=== PATIENT | male | born 1965 | race Caucasian/White ===

== ENCOUNTER → 2021-03-23 | Outpatient (CLI) | payer OTHER ==
[~2021-03-23] MED LIST: ALLOPURINOL100 MG PO; CLARITIN10 M2 PO; DICLOFENAC SODI50 MG PO; GABAPENTIN600 MG PO; GLIPIZIDE ER2.5 MG PO; LIDOCAINE PAIN1 EACH TP; LIPITOR80 MG PO; NORVASC10 MG PO; OMEPRAZOLE20 MG PO; SINGULAIR10 MG PO; TRAZODONE HCL150 MG PO; ZOLOFT100 MG PO
[2021-03-23 16:59] LABS: HEMOGLOBIN 16.1 gm/dl (14.0-17.5); RED BLOOD COUNT 5.34 M/UL (4.20-5.50); WHITE BLOOD COUNT 9.8 K/UL (4.5-11.0)
[2021-03-23 17:22] LABS: BUN/CREATININE RATIO 22 (0-10)
== END ==
LOC: LAB 15:40
PROVIDERS: Internal Medicine Interventional Cardiology
DX: I20.9 Angina pectoris, unspecified (principal); R60.9 Edema, unspecified; E78.5 Hyperlipidemia, unspecified; R07.89 Other chest pain; I10 Essential (primary) hypertension
CPT/HCPCS: 36415; 80048; 85025; 85610; 85730

== ENCOUNTER 2021-03-31 22:16 | Observation (INO) | payer OTHER ==
[~2021-03-31] VITALS: Ht 188 cm; Wt 140.6 kg
[2021-04-01 01:21] LABS: HEMOGLOBIN 15.4 gm/dl (14.0-17.5); RED BLOOD COUNT 4.91 M/UL (4.20-5.50); WHITE BLOOD COUNT 11.6 K/UL (4.5-11.0)
[2021-04-01 01:47] LABS: BUN/CREATININE RATIO 17 (0-10)
[2021-04-01] MEDS ORDERED: ZOLOFT100 MG PO (06:23)
[2021-04-01] MEDS ORDERED: GLIPIZIDE ER2.5 MG PO (06:23)
[2021-04-01] MEDS ORDERED: OMEPRAZOLE20 MG PO (06:23)
[2021-04-01] MEDS ORDERED: ALLOPURINOL100 MG PO (06:24)
[2021-04-01] MEDS ORDERED: GABAPENTIN600 MG PO (06:24)
[2021-04-01] MEDS ORDERED: TRAZODONE HCL150 MG PO (06:24)
[2021-04-01] MEDS ORDERED: SINGULAIR10 MG PO (06:25)
[2021-04-01] MEDS ORDERED: NORVASC10 MG PO (06:25)
[2021-04-01] MEDS ORDERED: LIPITOR80 MG PO (06:25)
[2021-04-01] MEDS ORDERED: CLARITIN10 M2 PO (06:26)
[2021-04-01] MEDS ORDERED: LIDOCAINE PAIN1 EACH TP ×2 (06:27)
[2021-04-01] MEDS ORDERED: DICLOFENAC SODI50 MG PO (06:28)
[2021-04-03 04:28] LABS: HEMOGLOBIN 14.1 gm/dl (14.0-17.5); RED BLOOD COUNT 4.72 M/UL (4.20-5.50)
[2021-04-03 04:50] LABS: BUN/CREATININE RATIO 15 (0-10)
--- NOTE | 2021-04-03 17:00 | NUR ---
PATIENT IS INSISTANT ON TAKING A WALK SOON POST PROCEDURE VITALS ARE FINISHED. THE DANGERS AND SMOKING POLICY OF THE HOSPITAL HAVE BEEN RELAYED TO THE PATIENT. WILL CONTINUE TO MONITOR.
--- NOTE | 2021-04-03 17:21 | NUR ---
PATIENT HAS LEFT HIS ROOM WITH HIS FAMILY. TRJ BAND STILL IN PLACE AND NOT FULLY DEFLATED. SURGERY VITALS FINISHED. WILL CONTINUE TO MONITOR.
== END 2021-04-03 18:20 | disposition home or self-care (01) ==
LOC: ER1 22:16 → CDU 04-01 02:43 → MED SURG 4 04-01 02:43
PROVIDERS: Internal Medicine Cardiovascular Disease; Physician Assistant; ADMIT Internal Medicine
DX: I20.0 Unstable angina (principal); I10 Essential (primary) hypertension; E11.9 Type 2 diabetes mellitus without complications; G47.33 Obstructive sleep apnea (adult) (pediatric); Z88.5 Allergy status to narcotic agent; F17.210 Nicotine dependence, cigarettes, uncomplicated; Z82.49 Family history of ischemic heart disease and other diseases of the circulatory system; Z20.822 Contact with and (suspected) exposure to COVID-19; Z79.84 Long term (current) use of oral hypoglycemic drugs; F41.9 Anxiety disorder, unspecified; K21.9 Gastro-esophageal reflux disease without esophagitis; E78.5 Hyperlipidemia, unspecified; J18.9 Pneumonia, unspecified organism
CPT/HCPCS: 36415; 71045; 71046; 80048; 80053; 82550; 82553; 82962; 83874; 83880; 84484; 85025; 93005; 99152; 99285; C1769; C1894; G0378; J1644; J2250; J3010; Q9967; U0002

== ENCOUNTER 2021-08-23 16:29 | Emergency (ER) | payer OTHER ==
[2021-08-23] MEDS ORDERED: MEDROL DOSEPAK 24 MG PO (22:10)
[2021-08-23] MEDS ORDERED: CYCLOBENZAPRINE5 MG PO (22:10)
== END 2021-08-23 22:25 | disposition home or self-care (01) ==
LOC: ER1 16:29
DX: M51.37 Other intervertebral disc degeneration, lumbosacral region (principal); M54.41 Lumbago with sciatica, right side; M54.42 Lumbago with sciatica, left side; M17.0 Bilateral primary osteoarthritis of knee; G89.29 Other chronic pain; F17.200 Nicotine dependence, unspecified, uncomplicated; E11.9 Type 2 diabetes mellitus without complications; I10 Essential (primary) hypertension; Z88.5 Allergy status to narcotic agent; E78.00 Pure hypercholesterolemia, unspecified
CPT/HCPCS: 72131; 73562; 96372; 99284; J1100; J1885